=== PATIENT | female | born 1995 | race Two or more races ===

== ENCOUNTER 2017-03-03 02:39 | Emergency (ER) | payer MEDICAID ==
[~2017-03-03] VITALS: Ht 160 cm; Wt 70.8 kg
[2017-03-03 02:42] VITALS: BP 118/64
== END 2017-03-03 07:00 | disposition left against medical advice (07) ==
LOC: ER 02:42
DX: R10.13 Epigastric pain (principal); Z53.21 Procedure and treatment not carried out due to patient leaving prior to being seen by health care provider

== ENCOUNTER 2017-04-09 11:55 | Observation (INO) | payer MEDICAID ==
[2017-04-09] MEDS ORDERED: PREN-153 OR (12:12)
[2017-04-09] MEDS ORDERED: FOLI1TAB6 PO (12:12)
[2017-04-09] MEDS ORDERED: LACTATED RINGER'S 1,000 ML IV ONE (12:28)
[2017-04-09] MEDS ORDERED: LACTATED RINGER'S 1,000 ML IV SCH (12:28)
[2017-04-09] MEDS ORDERED: NIFEdipine 10 MG CAP PO ONE (12:30)
[2017-04-09 12:32] LABS: Urine Amorphous Crystal FEW /hpf (None Seen); Urine Bacteria FEW /hpf (None Seen); Urine Blood Negative /uL (Negative); Urine Specific Gravity 1.009 (1.001-1.035); Urine WBC 3 /hpf (0 - 5)
[2017-04-09] MEDS: TERBUTALINE SULFATE 1 MG/ML 1ML VIAL SC SCH ×3 (12:50→13:10)
[2017-04-09] MEDS ORDERED: TERBUTALINE SULFATE 1 MG/ML 1ML VIAL SC ONE (12:56)
[2017-04-09] MEDS ORDERED: BETAMETHASONE ACET (6MG/ML) 5ML VIAL ONE (12:57)
[2017-04-09] MEDS ORDERED: AMPICILLIN SOD 2GM INJ 2 GM in SODIUM CHL 0.9% 100 ML IV ONE (13:30)
[2017-04-09 14:08] LABS: Basophils # (auto) 0 uL; Basophils % (auto) 0.4 % (0.0-2.0); Eosinophils # (auto) 0 uL; Eosinophils % (auto) 0.4 % (0.0-7.0); Hematocrit 34.7 % (36.0-46.0); Hemoglobin 11.5 g/dL (12.2-16.2); Lymphocytes # (auto) 2.4 uL; Mean Corpuscular Hemoglobin 27.7 pg (28.0-32.0); Mean Corpuscular Hgb Conc. 33.2 g/dL (32.0-36.0); Mean Corpuscular Volume 83.3 fL (80.0-100.0); Monocytes # (auto) 0.9 uL; Monocytes % (auto) 9.2 % (0.0-12.0); Neutrophils # (auto) 5.9 uL; Platelet Count (auto) 150 10^3/uL (140-450); Red Blood Cells 4.17 10^6/uL (4.0-5.20); Red Cell Distribution Width 15.1 % (11.8-14.3); White Blood Cell 9.3 10^3/uL (4.4-10.8)
[2017-04-09 14:24] LABS: INR 0.9 (0.9-1.15); Partial Thromboplastin Time 30.8 sec (22.64-33.71); Prothrombin Time 9.8 sec (9.37-12.3)
[2017-04-09 14:55] LABS: Albumin 2.7 g/dL (3.4-5.0); BUN/Creatinine Ratio 12.2; Bilirubin, Total 0.3 mg/dL (0.2-1.0); Calcium 8.7 mg/dL (8.5-10.1); Total Protein 6.5 g/dL (6.4-8.2)
[2017-04-09] MEDS ORDERED: BETAMETHASONE ACET (6MG/ML) 5ML VIAL IM SCH (22:00)
== END 2017-04-09 14:20 | disposition short-term general hospital (02) | DRG 566 ==
LOC: LDRP 11:55
PROVIDERS: ADMIT Obstetrics & Gynecology; ATTEND Obstetrics & Gynecology
DX: O42.913 Preterm premature rupture of membranes, unspecified as to length of time between rupture and onset of labor, third trimester (principal); O60.03 Preterm labor without delivery, third trimester; O26.893 Other specified pregnancy related conditions, third trimester; O62.9 Abnormality of forces of labor, unspecified; R10.9 Unspecified abdominal pain; Z3A.33 33 weeks gestation of pregnancy
CPT/HCPCS: 36415; 59025; 76805; 76818; 80053; 81001; 81002; 85025; 85610; 85730; 86850; 86900; 86901; 96361; 96365; 96372; G0378; J0290; J0702; J3105

== ENCOUNTER 2018-04-28 12:38 | Emergency (ER) | payer MEDICAID ==
[~2018-04-28 12:38] MED LIST: FOLI1TAB6 PO; PREN-153 OR
[2018-04-28 13:46] VITALS: BP 119/63
[2018-04-28 14:23] LABS: Urine WBC None Seen /hpf (0 - 5)
[2018-04-28 14:27] LABS: Basophils # (auto) 0.1 uL; Basophils % (auto) 0.7 % (0.0-2.0); Eosinophils # (auto) 0.1 uL; Eosinophils % (auto) 1.8 % (0.0-7.0); Hematocrit 40.4 % (36.0-46.0); Hemoglobin 13.7 g/dL (12.2-16.2); Lymphocytes # (auto) 2.3 uL; Lymphocytes % (auto) 28.4 % (10.0-50.0); Mean Corpuscular Hemoglobin 28.4 pg (28.0-32.0); Mean Corpuscular Hgb Conc. 33.8 g/dL (32.0-36.0); Monocytes # (auto) 0.6 uL; Monocytes % (auto) 7.4 % (0.0-12.0); Neutrophils # (auto) 4.9 uL; Neutrophils % (auto) 61.7 % (37.0-80.0); Nucleated Red Blood Cells % 0.1 %; Platelet Count (auto) 186 10^3/uL (140-450); Red Blood Cells 4.81 10^6/uL (4.0-5.20); Red Cell Distribution Width 13.5 % (11.8-14.3)
[2018-04-28 14:36] LABS: Urine Bacteria NONE SEEN /hpf (None Seen); Urine Blood TRACE /uL (Negative); Urine Specific Gravity 1.018 (1.001-1.035)
[2018-04-28 14:52] LABS: Potassium 3.8 mmol/L (3.5-5.1)
[2018-04-28 14:58] LABS: Albumin 4.1 g/dL (3.4-5.0); BUN/Creatinine Ratio 17.6; Bilirubin, Total 0.3 mg/dL (0.2-1.0)
== END 2018-04-28 15:40 | disposition home or self-care (01) ==
LOC: ER 12:38
DX: R10.11 Right upper quadrant pain (principal); F41.9 Anxiety disorder, unspecified; Z90.49 Acquired absence of other specified parts of digestive tract
CPT/HCPCS: 36415; 74176; 80053; 81001; 83690; 85025